=== PATIENT | female | born 1975 | race Caucasian/White ===

== ENCOUNTER 2020-04-19 00:41 | Outpatient (CLI) | payer OTHER, SELFPAY ==
[2020-04-19 18:11] LABS: SARS-CoV-2 RNA PCR Negative
== END 2020-04-19 00:42 | disposition home or self-care (01) ==
LOC: ANHCOVIDDT 00:41
PROVIDERS: PCP Internal Medicine; Visit Provider Surgery
DX: Z01.812 Encounter for preprocedural laboratory examination (principal); Z11.59 Encounter for screening for other viral diseases
CPT/HCPCS: 87635; C9803; U0003

== ENCOUNTER 2020-04-22 01:38 | Day surgery (SDC) | payer OTHER, SELFPAY ==
[2020-04-15 11:37] VITALS: BMI 35.6
[2020-04-22 09:30] VITALS: BP 148/88; PULSE 77; RESP 16; TEMP 36.4; O2SAT 97
[2020-04-22] MEDS: LACTATED RINGERS 1,000 ML 150 ML IV CONT (09:33)
--- NOTE | 2020-04-22 09:43 | PM.IMHP ---
H&P: HPI History of Present Illness Date/Time: 04/22/20 09:43 Chief complaint: Epigastric Abdominal Pain Narrative: Luiza Talbot is a 44 year old female who presents with frequent epigastric pains and heartburn. She is not on any medication for acid reflux. She was found to have gallstones, and she is referred for EGD to make sure there is nothing else that could be contributing to her symptoms. Review of Systems Review of Systems: All systems reviewed & are unremarkable except as noted in HPI and below Constitutional: Constitutional: Denies chills, Denies fever(s), Denies headache(s) and Denies weight loss Eyes: Eyes: Denies change in vision ENT: Denies dizziness, Denies headache(s), Denies neck mass and Denies throat swelling Cardiovascular: Cardiovascular: Denies chest pain, Denies lightheadedness and Denies dyspnea Respiratory: Respiratory: Denies cough, Denies dyspnea and Denies wheezing Gastrointestinal: Gastrointestinal: Denies abdominal pain, Denies change in bowel habits, Denies nausea and Denies vomiting Genitourinary: Genitourinary: Denies hematuria and Denies dysuria Musculoskeletal: Musculoskeletal: Reports as per HPI Integumentary/Breasts: Skin/Breast: Reports as per HPI Neurologic: Denies dizziness and Denies headache(s) Allergic/Immunologic: Allergic/Immunologic: Denies throat swelling and Denies wheezing [facility] Family History Family History Father Hypertension Diabetes mellitus Family history of cardiovascular disease Social History Social History Smoking status: Former smoker Smoking end date: 09/12/07 Alcohol intake: never Meds Home Medications and Allergies Home Medications Medication Instructions Recorded Confirmed Type acetaminophen [Tylenol] 325 mg PO ONCE PRN 04/15/20 04/15/20 History Allergies Allergy/AdvReac Type Severity Reaction Status Date / Time mirtazapine Allergy Mild Weakness Verified 04/15/20 11:15 topiramate Allergy Mild Weakness Verified 04/15/20 11:35 Vital Signs Vital Signs - 24 hr 04/22/20 09:30 Temperature 36.4 C Pulse Rate 77 Respiratory Rate 16 Blood Pressure 148/88 H Pulse Oximetry 97 Exam Const: General: no acute distress and alert Orientation/consciousness: patient oriented x3 HENMT: Head: normocephalic and atraumatic Ears: hearing grossly normal bilaterally General nose exam: Normal nares present Mouth: Yes Normal oral and palatal mucosa present Eyes: Periorbital: periorbital findings normal Sclera: sclerae normal EOM: EOMs intact bilaterally Neck: Neck: normal visual inspection, no lymphadenopathy and trachea midline Chest: Chest palpation & inspection: normal inspection of the chest Resp: Effort & Inspection: normal respiratory effort Auscultation: clear to auscultation bilaterally Cardio: Jugular venous distension: no JVD Rate: regular rate Rhythm: regular rhythm Heart sounds: S1 normal heart sound present and S2 normal heart sound present Peripheral pulses: Peripheral pulses 2+ throughout GI: Inspection: normal to inspection GI Palp: Yes Soft to palpation, No Tenderness to palpation present (GI), No Guarding due to palpation present (GI) and No Rebound tenderness present Percussion: Yes normal to percussion Auscultation: normal bowel sounds : General: Yes no CVA tenderness Back/Spine/Pelvis: Back: no CVA tenderness Neuro: General: patient oriented x3, no focal motor deficits and CN's II-XI intact bilaterally Cognition (Neuro): normal cognition Speech: normal speech Motor exam (neuro): 5/5 motor strength present throughout Extrem: General: capillary refill normal and no clubbing, cyanosis or edema Assessment and Plan Assessment and plan (1) GERD (gastroesophageal reflux disease): Code(s): K21.9 - Gastro-esophageal reflux disease without esophagitis Status: Acute
--- NOTE | 2020-04-22 09:52 | WPDANESEPPF ---
Anes - Initial Pre Proc Eval Procedure: Operation Date: 04/22/20 10:00 Proposed Procedures p Esophagogastroduodenoscopy - Ac Norman DO Date/Time: 04/22/20 09:52 Surgeon: Ac Norman DO Pre Op Diagnosis: Epigastric Abdominal Pain Patient Data Age: 44 Gender: F Height: 5 ft 11 in Weight: 119.5 kg Last Vital Signs Temp 97.6 F 04/22/20 09:30 Pulse 77 04/22/20 09:30 Resp 16 04/22/20 09:30 BP 148/88 H 04/22/20 09:30 Pulse Ox 97 04/22/20 09:30 Allergies Allergy/AdvReac Type Severity Reaction Status Date / Time mirtazapine Allergy Mild Weakness Verified 04/15/20 11:15 topiramate Allergy Mild Weakness Verified 04/15/20 11:35 Home Medications Medication Instructions Recorded Confirmed Type acetaminophen [Tylenol] 325 mg PO ONCE PRN 04/15/20 04/15/20 History Patient hx anesthesia problems: none Family hx anesthesia problems: none [facility] Past Medical History Medical History (Updated 04/22/20 @ 09:52 by Bart Alston MD) Arthritis Migraine Family History Family History Father Hypertension Diabetes mellitus Family history of cardiovascular disease Social History Social History Smoking status: Former smoker Smoking end date: 09/12/07 Alcohol intake: never Anes - Eval Final PreProcedure Day of Procedure 04/22/20 09:52 Patient weight: overweight Heart: regular rate and rhythm Lungs: clear to auscultation Airway: Mallampati scale class II Neurological: alert and oriented Last oral intake: >/= 8 hours ASA classification: II Emergent: no Anesthetic plan: proceed Anesthesia type and monitoring: general GIVS and standard monitoring Informed Consent: The patient's anesthetic plan and its attendant risks and benefits were discussed with the patient/family/POA. Questions were solicited and answers provided to the satisfaction of the patient/family/POA.
[2020-04-22 10:09] VITALS: BP 139/74; PULSE 75; RESP 22; O2SAT 95
[2020-04-22 10:19] VITALS: BP 136/78; PULSE 78; RESP 20; O2SAT 96
[2020-04-22 10:29] VITALS: BP 144/87; PULSE 73; RESP 22; O2SAT 99
== END 2020-04-22 10:54 | disposition home or self-care (01) ==
PROVIDERS: PCP Internal Medicine; Visit Provider Surgery
PROC: 0DJ08ZZ Inspection of Upper Intestinal Tract, Via Natural or Artificial Opening Endoscopic (ICD-10-PCS; CPT 43235; principal; 2020-04-22 10:00)
DX: K29.70 Gastritis, unspecified, without bleeding (principal); K21.9 Gastro-esophageal reflux disease without esophagitis; Z87.891 Personal history of nicotine dependence
CPT/HCPCS: 43239; 87081; J2704; J7120

== ENCOUNTER 2020-06-05 15:13 | Outpatient (CLI) | payer OTHER, SELFPAY ==
--- NOTE | 2020-06-05 15:38 | ECG_ITS ---
Measurements Intervals [place] Rate: 73 P: 31 IA: 137 QRS: -2 QRSD: 108 T: 9 QT: 397 QTc: 440 Interpretive Statements SINUS RHYTHM DELAYED PRECORDIAL R/S TRANSITION VOLTAGE CRITERIA FOR LVH MINIMAL Q WAVES- HIGH LATERAL LEADS BASELINE ARTIFACT- II, III, AVF BORDERLINE ECG Electronically Signed On 06-05-2020 18:47:23 CDT by Jermain Mena D.O.
[2020-06-05 15:47] LABS: Alanine Aminotransferase 13 U/L (4-35); Albumin Level 4.5 g/dL (3.5-5.1); Alkaline Phosphatase 91 U/L (38-126); Amylase 66 U/L (30-110); Aspartate Amino Transferase 17 U/L (14-36); Bilirubin,Total 0.9 mg/dL (0.2-1.3); Lipase 47 U/L (23-300)
== END 2020-06-05 15:14 | disposition home or self-care (01) ==
LOC: ANHLAB 15:16
PROVIDERS: PCP Internal Medicine; Visit Provider Surgery
DX: K80.20 Calculus of gallbladder without cholecystitis without obstruction (principal); Z87.891 Personal history of nicotine dependence
CPT/HCPCS: 36415; 80076; 82150; 83690; 86850; 86900; 86901; 93005

== ENCOUNTER 2020-06-06 00:05 | Outpatient (CLI) | payer OTHER, SELFPAY ==
[2020-06-06 18:02] LABS: SARS-CoV-2 RNA PCR Negative
== END 2020-06-06 00:06 | disposition home or self-care (01) ==
LOC: ANHCOVIDDT 00:05
PROVIDERS: PCP Internal Medicine; Visit Provider Surgery
DX: Z01.812 Encounter for preprocedural laboratory examination (principal); Z20.828 Contact with and (suspected) exposure to other viral communicable diseases
CPT/HCPCS: 87635; C9803; U0003

== ENCOUNTER 2020-06-09 01:39 | Day surgery (SDC) | payer OTHER, SELFPAY ==
[2020-06-03 12:07] VITALS: BMI 37.2
[2020-06-09] VITALS (9 sets, daily range): BP systolic 129–154; BP diastolic 69–81; PULSE 61–96; RESP 17–20; TEMP 36.4–36.6; O2SAT 93–99; BMI 35.0
--- NOTE | 2020-06-09 12:01 | P.PNAN_ITS ---
Anes - Initial Pre Proc Eval Procedure: Operation Date: 06/09/20 13:30 Proposed Procedures p Laparoscopic Cholecystectomy, Possible Open - Ac Norman DO Date/Time: 06/09/20 12:01 Surgeon: Ac Norman DO Pre Op Diagnosis: Symptomatic Cholelithiasis Patient Data Age: 44 Gender: F Height: 5 ft 11 in Weight: 114 kg Last Vital Signs Temp 36.4 C L 06/09/20 11:30 Pulse 80 06/09/20 11:30 Resp 18 06/09/20 11:30 BP 143/81 H 06/09/20 11:30 Pulse Ox 99 06/09/20 11:30 Allergies Allergy/AdvReac Type Severity Reaction Status Date / Time mirtazapine Allergy Mild Weakness Verified 06/03/20 12:07 topiramate Allergy Mild Weakness Verified 06/03/20 12:07 Home Medications Medication Instructions Recorded Confirmed Type acetaminophen [Tylenol] 325 - 650 mg PO DIRECTED PRN 04/15/20 06/03/20 History pantoprazole 40 mg tablet,delayed 40 mg PO BID 06/02/20 06/03/20 History release rizatriptan 10 mg tablet 10 mg PO ONCE PRN 06/02/20 06/03/20 History multivitamin 1 tablet PO DAILY 06/03/20 06/03/20 History Patient hx anesthesia problems: none Family hx anesthesia problems: none PMFSH Surgical History Surgical History History of partial hysterectomy 2016 History of tubal ligation Family History Family History Father Hypertension Diabetes mellitus Family history of cardiovascular disease Social History Social History Smoking packs per day: 1.5 Smoking cigarettes per day: 30.0 Years smoked: 15 Smoking pack-years: 22.50 Smoking status: Former smoker Tobacco type: cigarettes Smoking end date: 09/12/07 Additional smoking assessment comments: QUIT 2007 Alcohol intake: never Drinks per week: 2 Additional occupation/education comments: [employer], [employer] Spiritual care concerns: No Anes - Eval Final PreProcedure Day of Procedure 06/09/20 12:01 Patient weight: obese Heart: regular rate and rhythm Lungs: clear to auscultation Airway: Mallampati scale class II Neurological: alert and oriented Last oral intake: >/= 8 hours ASA classification: II Emergent: no Anesthetic plan: proceed Anesthesia type and monitoring: general ETT and standard monitoring Informed Consent: The patient's anesthetic plan and its attendant risks and benefits were discussed with the patient/family/POA. Questions were solicited and answers provided to the satisfaction of the patient/family/POA.
[2020-06-09] MEDS: LACTATED RINGERS 1,000 ML 30 ML IV CONT ×2 (12:07→13:45)
[2020-06-09] MEDS: ACETAMINOPHEN 500 MG TABLET 1000 MG PO (12:11)
[2020-06-09] MEDS: KETOROLAC 15 MG/ML VIAL (*BKC) IV PUSH (12:12)
--- NOTE | 2020-06-09 12:31 | WPDHPUPDATE1 ---
History and Physical Update Update Date/Time: 06/09/20 12:31 History and Physical has been reviewed, including an updated exam of the patient. There are NO changes in the patient's condition. Risks, benefits, and alternatives have been discussed and questions answered. Patient agrees to proceed with procedure.
[2020-06-09] MEDS: ceFAZolin 2 GM/D5W 50 ML 2 GM/50 ML BAG IVPB (12:52)
[2020-06-09] MEDS: BUPIVACAINE/EPINEPHRINE 0.5% 10 ML VIAL 30 ML INFILTRATE (13:15)
--- NOTE | 2020-06-09 13:46 | PM.PROC ---
Procedure Note - Detailed Date of procedure: 06/09/20 Pre-op diagnosis: Symptomatic Cholelithiasis Post-op diagnosis: same Procedure performed: Laparoscopic Cholecystectomy Description of procedure: Procedure as well as risks, benefits, and alternatives were discussed with patient. Written consent was obtained and placed in chart prior to procedure. The patient was brought back to surgical suite. Patient was placed in supine position on operating table. Time-out was done to confirm patient and procedure. Patient was then intubated by the anesthesia department. Abdomen was prepped and draped in sterile fashion using chlorhexidine prep. 0.5% bupivacaine with epinephrine was infiltrated at each site of incision. A 5 millimeter incision was made near the umbilicus, and a 5 millimeter Optiview trocar was advanced through the abdominal layers under direct visualization. Once inside the abdominal cavity, carbon dioxide was insufflated to create a pneumoperitoneum. The camera was inserted and the abdomen was inspected. No immediate abnormalities were identified. The patient was placed in reverse Trendelenburg position and rotated slightly to the left. An 11 millimeter incision was made in the subxiphoid region, and an 11 millimeter trocar was inserted under direct visualization. Two 5 millimeter incisions were made in the right upper quadrant, and two 5 millimeter trocars were inserted under direct visualization. The gallbladder was identified and grasped at the fundus and retracted superiorly. It was then grasped at the infundibulum retracted laterally. Careful dissection around the neck of the gallbladder was performed using blunt dissection with a [place] grasper and hook electrocautery. The cystic duct was identified, and a window was created behind it. The cystic artery was also identified and a window was created behind it. The critical view of safety was identified, visualizing the cystic duct running directly into the neck of the gallbladder, and the cystic artery running directly into the wall of the gallbladder. A 5 millimeter clip portable track line marker was then used to place 2 clips proximally and 1 clip distally on both the cystic duct and cystic artery. They were then both transected using endoscopic scissors. Once safely away from the margarita hepatitis, the gallbladder was dissected free from the liver bed using hook electrocautery. Hemostasis was achieved along the way. The gallbladder was removed completely and then removed through the subxiphoid port. The liver bed was then inspected. Hemostasis appeared adequate, and our clips appeared secure. The area was gently irrigated with sterile saline. No other abnormalities were seen. The patient was flattened out in bed, and 1 final inspection was made around the abdominal cavity. The subxiphoid port was removed, and a P[place] Santos cone was used to approximate the fascia with an 0-Vicryl simple interrupted suture. The remaining ports were then removed under direct visualization, the camera was removed, and the pneumoperitoneum was released. The skin of the incisions was approximated using 4-0 Monocryl subcuticular sutures. Exofin glue was applied on top. The patient was then awakened from anesthesia, extubated, and transferred to recovery. Anesthesia: GETA and local (0.5% bupivicaine with epi) Surgeon: Ac Norman DO Estimated blood loss (mL): 5 Drains: No Packing: No Pathology: yes Complications: No immediate complications Condition: stable (Patient tolerated procedure well, and is currently resting comfortably in recovery.) Disposition: same day Findings: Luiza is a 44 yo woman who presents with abdominal pain and gallstones. She states the pain is located across her upper abdomen. She states the pain is occasionally severe. She had an EGD performed on 04/22/20 which showed mild localized gastritis. CT abd/pelvis with contrast was done in [place] on 05/07/20 and showed cholelithiasis. Discuss
[2020-06-09] MEDS: fentaNYL CITRATE INJ (*CRX) 100 MCG/2 ML VIAL 25 MCG IV PUSH ×6 (14:12→14:30)
== END 2020-06-09 15:57 | disposition home or self-care (01) ==
PROVIDERS: PCP Internal Medicine; Visit Provider Surgery
PROC: 0FT44ZZ Resection of Gallbladder, Percutaneous Endoscopic Approach (ICD-10-PCS; CPT 47562; principal; 2020-06-09 13:30)
DX: K80.10 Calculus of gallbladder with chronic cholecystitis without obstruction (principal); Z87.891 Personal history of nicotine dependence; E66.9 Obesity, unspecified; Z68.35 Body mass index [BMI] 35.0-35.9, adult
CPT/HCPCS: 47562; 88304; A9270; J0690; J1100; J1885; J2250; J2405; J2704; J2710; J3010; J7030; J7120

== ENCOUNTER 2020-11-04 09:08 | Outpatient (CLI) | payer OTHER, SELFPAY ==
--- NOTE | ~2020-11-04 | XR_ITS ---
XR lumbar spine 2-3V DATE: 11/04/2020 10:00 INDICATION: Chronic back pain, hip pain TECHNIQUE: AP, lateral, coned lateral lumbosacral views COMPARISON: 05/08/2008 lumbar spine FINDINGS: There is mild dextroscoliosis of the lower thoracic and lumbar spine. There is normal align ment of the lumbar spine. The included lower thoracic and lumbar pedicles are intact. No fracture or bone destruction or spondylolisthesis. There is moderately severe degenerative disc disease at L1-2, moderate degenerative disc disease at L 2-3, moderately severe degenerative disc disease at L4-5 and severe degenerative disease at L5-S1. The sacroiliac joints are intact. Status post cholecystectomy IMPRESSION: Multilevel degenerative disc disease, most pronounced at L1-2, L4-5 and particularly L5-S 1 Reviewed, dictated and finalized at location A. RTING PRESS OPERATOR IMPRESSION: Multilevel degenerative disc disease, most pronounced at L1-2, L4-5 and particularly L5-S1
--- NOTE | ~2020-11-04 | XR_ITS ---
XR knee RT 3V DATE: 11/04/2020 10:00 INDICATION: Right knee pain TECHNIQUE: [place], AP and lateral views COMPARISON: 06/25/2011 right knee FINDINGS: No fracture or dislocation or joint effusion. No periosteal reaction or bone destruction. N o radiopaque intra-articular loose body or chondrocalcinosis. Joint spaces are relatively preserved. Minimal periarticular spurring at all 3 compartments. IMPRESSION: Mild osteoarthritis Reviewed, dictated and finalized at location A. LANCE DIRECTOR IMPRESSION: Mild osteoarthritis
--- NOTE | ~2020-11-04 | XR_ITS ---
XR knee LT 3V DATE: 11/04/2020 10:00 INDICATION: Left knee pain TECHNIQUE: [place], AP and lateral views COMPARISON: None FINDINGS: No fracture or dislocation or joint effusion. No periosteal reaction or bone destruction. N o radiopaque intra-articular loose body or chondrocalcinosis. Minimal periarticular spurring at the knee joint. IMPRESSION: Mild osteoarthritis Reviewed, dictated and finalized at location A. TYPE CUTTER IMPRESSION: Mild osteoarthritis
--- NOTE | ~2020-11-04 | XR_ITS ---
XR hip RT min 2V DATE: 11/04/2020 10:00 INDICATION: Right hip pain for 2 months TECHNIQUE: AP and lateral views COMPARISON: None FINDINGS: There is mild degenerative spurring of the right femoral head. Right hip joint space is rel atively preserved. No fracture, dislocation, avascular necrosis or bone destruction of the right hip. Normal alignment a t the pubic symphysis and right sacroiliac joint. IMPRESSION: Mild right hip osteoarthritis Reviewed, dictated and finalized at location A. HROOM OPERATOR
--- NOTE | ~2020-11-04 | XR_ITS ---
XR hip LT min 2V DATE: 11/04/2020 10:00 INDICATION: Left hip pain for 2 months TECHNIQUE: AP and lateral views COMPARISON: None FINDINGS: No fracture or dislocation, avascular necrosis or bone destruction. The left hip joint spac e is relatively well preserved. There is minimal degenerative spurring of the left femoral head. Join t space appears relatively preserved. The pubic symphysis and sacroiliac joints appear intact. IMPRESSION: Mild left hip osteoarthritis Reviewed, dictated and finalized at location A. PATOLOGIST
== END 2020-11-04 09:09 | disposition home or self-care (01) ==
LOC: CHSIMG 09:11
PROVIDERS: PCP Internal Medicine; Visit Provider Internal Medicine
DX: Z00.00 Encounter for general adult medical examination without abnormal findings (principal); M25.50 Pain in unspecified joint
CPT/HCPCS: 72100; 73502; 73562

== ENCOUNTER 2020-11-08 08:06 | Outpatient (CLI) | payer OTHER, SELFPAY ==
[2020-11-08 08:19] LABS: Basophils Absolute Auto 0.05 K/mm3 (0.00-0.10); Basophils Percent Auto 0.8 % (0.0-1.0); Eosinophils Absolute Auto 0.08 K/mm3 (0.02-0.50); Eosinophils Percent Auto 1.3 % (1.0-6.0); Hematocrit 39.2 % (35.0-49.0); Hemoglobin 12.7 g/dL (12.0-15.0); Immature Granulocyte Absolute 0.02 K/mm3 (0.00-0.00); Immature Granulocyte Percent A 0.3 % (0.0-0.0); Lymphocytes Absolute Auto 1.81 K/mm3 (1.10-4.50); Lymphocytes Percent Auto 30.4 % (18.0-42.0); Mean Corpuscular HGB Conc 32.4 g/dL (32.0-36.0); Mean Corpuscular Hemoglobin 30.1 pg (27.0-31.0); Mean Corpuscular Volume 92.9 fL (78.0-102.0); Mean Platelet Volume 10.8 fl (9.2-11.8); Monocytes Absolute Auto 0.36 K/mm3 (0.10-0.90); Monocytes Percent Auto 6.1 % (2.0-11.0); Neutrophils Absolute Auto 3.6 K/mm3 (1.7-7.2); Neutrophils Percent Auto 61.1 % (50.0-70.0); Platelet Count Result 186 K/mm3 (150-420); Red Blood Count 4.22 M/mm3 (4.20-5.40); Red Cell Distribution Width 12.2 % (11.6-14.4)
[2020-11-08 08:25] LABS: Add Urine Microscopic? NO; Appearance Urine Clear (Clear); Bilirubin Urine Negative (Negative); Blood Urine Negative (Negative); Color Urine Yellow (Yellow); Glucose Urine UA Negative (Negative); Ketones Urine Negative (Negative); Leukocyte Esterase Ur Negative (Negative); Nitrate Urine Negative (Negative); Protein Urine Negative (Negative); Specific Grav Ur 1.025 (1.010-1.020); Urobilinogen Urine 0.2 mg/dL (0.2-1.0); pH Urine 6.5 (5.0-8.0)
[2020-11-08 09:38] LABS: Alanine Aminotransferase 21 U/L (14-59); Albumin Level 3.5 g/dL (3.4-5.0); Alkaline Phosphatase 78 U/L (46-116); Anion Gap 6 mmol/L (8-16); Aspartate Amino Transferase 11 U/L (15-37); Bilirubin,Total 0.5 mg/dL (0.00-1.00); Blood Urea Nitrogen 11 mg/dL (7-18); CRP < 0.5 mg/dL (0.0-0.9); Calcium 8.4 mg/dL (8.5-10.1); Carbon Dioxide 27 mmol/L (21-32); Chloride 107 mmol/L (98-108); Cholesterol 145 mg/dL (0-200); Estimated Glomerular Filt Rate > 60; Glucose 95 mg/dL (70-99); HDL Direct 62 mg/dL (40-60); LDL Cholesterol Calculated 70 mg/dL (<130); Osmolality Calculated 289 mOsm/kg (285-295); Potassium 4.3 mmol/L (3.5-5.1); Sodium 140 mmol/L (136-145); Thyroid Stimulating Hormone 0.98 uIU/mL (0.36-3.74); Total Protein 6.7 g/dL (6.4-8.2); Triglycerides 66 mg/dL (0-150)
== END 2020-11-08 08:07 | disposition home or self-care (01) ==
LOC: CHSLAB 08:09
PROVIDERS: PCP Internal Medicine; Visit Provider Internal Medicine
DX: Z00.00 Encounter for general adult medical examination without abnormal findings (principal); M25.50 Pain in unspecified joint
CPT/HCPCS: 36415; 80053; 80061; 81003; 84443; 85025; 86140

== ENCOUNTER 2021-05-04 15:14 | Outpatient (CLI) | payer OTHER, SELFPAY ==
--- NOTE | ~2021-05-04 | XR_ITS ---
XR foot RT min 3V DATE: 05/04/2021 15:35 INDICATION: Lateral right foot pain for one month. No injury. TECHNIQUE: 4 views COMPARISON: None FINDINGS: Slight plantar calcaneal enthesopathy. No fracture or dislocation, periosteal reaction or b one destruction. IMPRESSION: Slight plantar calcaneal enthesopathy Reviewed, dictated and finalized at location A.
== END 2021-05-04 15:15 | disposition home or self-care (01) ==
LOC: CHSIMG 15:17
PROVIDERS: PCP Internal Medicine; Visit Provider Internal Medicine
DX: M79.671 Pain in right foot (principal)
CPT/HCPCS: 73630

== ENCOUNTER 2022-03-25 09:00 | Outpatient (CLI) | payer OTHER, SELFPAY ==
[2022-03-25 09:16] LABS: Add Urine Microscopic? NO; Appearance Urine Clear (Clear); Basophils Absolute Auto 0.06 K/mm3 (0.00-0.10); Basophils Percent Auto 0.8 % (0.0-1.0); Bilirubin Urine Negative (Negative); Blood Urine Negative (Negative); Color Urine Yellow (Yellow); Eosinophils Absolute Auto 0.07 K/mm3 (0.02-0.50); Eosinophils Percent Auto 0.9 % (1.0-6.0); Glucose Urine UA Negative (Negative); Hematocrit 40.4 % (35.0-49.0); Immature Granulocyte Absolute 0.02 K/mm3 (0.00-0.00); Immature Granulocyte Percent A 0.3 % (0.0-0.0); Ketones Urine Negative (Negative); Leukocyte Esterase Ur Negative (Negative); Lymphocytes Absolute Auto 2.28 K/mm3 (1.10-4.50); Lymphocytes Percent Auto 30.1 % (18.0-42.0); Mean Corpuscular HGB Conc 32.2 g/dL (32.0-36.0); Mean Corpuscular Hemoglobin 29.7 pg (27.0-31.0); Mean Corpuscular Volume 92.4 fL (78.0-102.0); Mean Platelet Volume 10.9 fl (9.2-11.8); Monocytes Absolute Auto 0.64 K/mm3 (0.10-0.90); Monocytes Percent Auto 8.4 % (2.0-11.0); Neutrophils Absolute Auto 4.5 K/mm3 (1.7-7.2); Neutrophils Percent Auto 59.5 % (50.0-70.0); Nitrate Urine Negative (Negative); Platelet Count Result 222 K/mm3 (150-420); Protein Urine Negative (Negative); Red Blood Count 4.37 M/mm3 (4.20-5.40); Red Cell Distribution Width 12.4 % (11.6-14.4); Urobilinogen Urine 0.2 mg/dL (0.2-1.0); White Blood Count 7.6 K/mm3 (4.8-10.8); pH Urine 5.5 (5.0-8.0)
[2022-03-25 10:16] LABS: Alanine Aminotransferase 22 U/L (14-59); Albumin Level 3.8 g/dL (3.4-5.0); Alkaline Phosphatase 102 U/L (46-116); Anion Gap 8 mmol/L (8-16); Aspartate Amino Transferase 13 U/L (15-37); Bilirubin,Total 0.5 mg/dL (0.00-1.00); Blood Urea Nitrogen 17 mg/dL (7-18); CRP 0.5 mg/dL (0.0-0.9); Calcium 8.8 mg/dL (8.5-10.1); Carbon Dioxide 28 mmol/L (21-32); Chloride 106 mmol/L (98-108); Cholesterol 177 mg/dL (0-200); Estimated Glomerular Filt Rate > 60; Glucose 100 mg/dL (70-99); HDL Direct 71 mg/dL (40-60); LDL Cholesterol Calculated 94 mg/dL (<130); Osmolality Calculated 295 mOsm/kg (285-295); Potassium 4.5 mmol/L (3.5-5.1); Sodium 142 mmol/L (136-145); Thyroid Stimulating Hormone 1.06 uIU/mL (0.36-3.74); Total Protein 7.2 g/dL (6.4-8.2); Triglycerides 58 mg/dL (0-150); Uric Acid 4.6 mg/dL (2.6-6.0)
[2022-03-25 14:15] LABS: Hemoglobin A1C 5.2 % (<5.7)
[2022-03-28 15:15] LABS: FSH 21.9 mIU/mL (***)
[2022-03-30 15:56] LABS: Estrogen 364.3 pg/mL
== END 2022-03-25 09:01 | disposition home or self-care (01) ==
LOC: CHSLAB 09:02
PROVIDERS: PCP Internal Medicine; Visit Provider Internal Medicine
DX: Z00.00 Encounter for general adult medical examination without abnormal findings (principal); R53.83 Other fatigue; M25.50 Pain in unspecified joint; R23.2 Flushing; R73.9 Hyperglycemia, unspecified
CPT/HCPCS: 36415; 80053; 80061; 81003; 82672; 83001; 83002; 83036; 84443; 84550; 85025; 86140

== ENCOUNTER 2022-03-29 07:27 | Outpatient (CLI) | payer OTHER, SELFPAY ==
--- NOTE | ~2022-03-29 | MM_ITS ---
EXAMINATION: MM screening [facility] BI w [facility] HISTORY: Screening TECHNIQUE: Craniocaudal and mediolateral oblique 3-D tomosynthesis images were obtained and synthetic 2-D images were generated. CAD analysis was submitted and interpreted. COMPARISON: Comparison to multiple prior studies sequentially, with oldest reviewed study dated 05/31. BREAST PARENCHYMAL COMPOSITION: There are scattered areas of fibroglandular density. FINDINGS: There is no evidence of suspicious mass, calcification, or architectural distortion to sugg est malignancy in either breast. There has been no suspicious interval change. IMPRESSION: 1. No mammographic evidence of malignancy. 2. Recommend routine screening mammography in one year. BI-RADS Category 1: Negative Reviewed, dictated and finalized at location A.
== END 2022-03-29 07:28 | disposition home or self-care (01) ==
LOC: CHSIMG 07:27
PROVIDERS: PCP Internal Medicine; Visit Provider Internal Medicine
DX: Z12.31 Encounter for screening mammogram for malignant neoplasm of breast (principal)
CPT/HCPCS: 77063; 77067

== ENCOUNTER 2023-07-30 08:40 | Outpatient (CLI) | payer OTHER, SELFPAY ==
[2023-07-30 08:55] LABS: Basophils Absolute Auto 0.05 K/mm3 (0.00-0.10); Basophils Percent Auto 0.8 % (0.0-1.0); Eosinophils Absolute Auto 0.14 K/mm3 (0.02-0.50); Eosinophils Percent Auto 2.3 % (1.0-6.0); Hematocrit 40.2 % (35.0-49.0); Hemoglobin 13.1 g/dL (12.0-15.0); Immature Granulocyte Absolute 0.01 K/mm3 (0.00-0.00); Immature Granulocyte Percent A 0.2 % (0.0-0.0); Lymphocytes Absolute Auto 1.69 K/mm3 (1.10-4.50); Lymphocytes Percent Auto 27.5 % (18.0-42.0); Mean Corpuscular HGB Conc 32.6 g/dL (32.0-36.0); Monocytes Absolute Auto 0.46 K/mm3 (0.10-0.90); Monocytes Percent Auto 7.5 % (2.0-11.0); Neutrophils Absolute Auto 3.8 K/mm3 (1.7-7.2); Neutrophils Percent Auto 61.7 % (50.0-70.0); Platelet Count Result 192 K/mm3 (150-420); Red Blood Count 4.37 M/mm3 (4.20-5.40); Red Cell Distribution Width 12.3 % (11.6-14.4); White Blood Count 6.1 K/mm3 (4.8-10.8)
[2023-07-30 09:08] LABS: Appearance Urine Clear (Clear); Bilirubin Urine Negative (Negative); Blood Urine Negative (Negative); Color Urine Yellow (Yellow); Glucose Urine UA Negative (Negative); Ketones Urine Negative (Negative); Leukocyte Esterase Ur Negative (Negative); Nitrate Urine Negative (Negative); Protein Urine Negative (Negative); Urobilinogen Urine 0.2 mg/dL (0.2-1.0)
[2023-07-30 09:09] LABS: Add Urine Microscopic? NO
[2023-07-30 09:51] LABS: Alanine Aminotransferase 21 U/L (14-59); Albumin Level 3.4 g/dL (3.4-5.0); Alkaline Phosphatase 68 U/L (46-116); Anion Gap 9 mmol/L (8-16); Aspartate Amino Transferase < 10 U/L (15-37); Bilirubin,Total 0.7 mg/dL (0.00-1.00); Blood Urea Nitrogen 13 mg/dL (7-18); Calcium 8.4 mg/dL (8.5-10.1); Carbon Dioxide 27 mmol/L (21-32); Chloride 106 mmol/L (98-108); Cholesterol 148 mg/dL (0-200); Estimated Glomerular Filt Rate > 60; Glucose 99 mg/dL (70-99); HDL Direct 69 mg/dL (40-60); LDL Cholesterol Calculated 70 mg/dL (<130); Osmolality Calculated 294 mOsm/kg (285-295); Potassium 4.1 mmol/L (3.5-5.1); Sodium 142 mmol/L (136-145); Thyroid Stimulating Hormone 1.16 uIU/mL (0.36-3.74); Total Protein 6.5 g/dL (6.4-8.2); Triglycerides 43 mg/dL (0-150)
== END 2023-07-30 08:41 | disposition home or self-care (01) ==
LOC: CHSLAB 08:43
PROVIDERS: PCP Internal Medicine; Visit Provider Internal Medicine
DX: Z00.00 Encounter for general adult medical examination without abnormal findings (principal)
CPT/HCPCS: 36415; 80053; 80061; 81003; 84443; 85025

== ENCOUNTER 2023-08-16 14:03 | Outpatient (CLI) | payer OTHER, SELFPAY ==
--- NOTE | ~2023-08-16 | MM_ITS ---
EXAMINATION: MM screening [facility] BI w [facility] HISTORY: Screening mammogram TECHNIQUE: Craniocaudal and mediolateral oblique 3-D tomosynthesis images were obtained and synthetic 2-D images were generated. CAD analysis was submitted and interpreted. COMPARISON: 03/29/2022, 11/02/2017, 08/25/2016 BREAST PARENCHYMAL COMPOSITION: There are scattered areas of fibroglandular density. FINDINGS: No suspicious mass, calcification, or architectural distortion are identified in either teagan ast to suggest malignancy. There has been no suspicious interval change. IMPRESSION: 1. No mammographic evidence of malignancy. 2. Recommend routine screening mammography in one year. BI-RADS Category 1: Negative Reviewed, dictated and finalized at location A. BURNER
== END 2023-08-16 14:04 | disposition home or self-care (01) ==
PROVIDERS: PCP Internal Medicine; Visit Provider Internal Medicine
DX: Z12.31 Encounter for screening mammogram for malignant neoplasm of breast (principal)
CPT/HCPCS: 77063; 77067

== ENCOUNTER 2025-08-20 08:17 | Outpatient (CLI) | payer BC, SELFPAY ==
--- NOTE | 2025-08-20 08:26 | ECHO_ITS ---
Patient Info Name: Luiza Talbot Age: 50 years : 1975 Gender: Female Ht: 71 in Wt: 223 lbs BSA: 2.28 m2 HR: 67 bpm BP: 174 / 91 mmHg Technical Quality: Good Exam Date: 08/20/2025 8:28 AM Patient Status: O Admit Date: 08/20/2025 Exam Type: CA echo doppler color flow Complete two-dimensional, color flow and Doppler transthoracic echocardiogram is performed. Paper Rewinder Operator: Checo Corbin III Attending Provider: Malik Kaur MD Summary 1. Complete two-dimensional, color flow and Doppler transthoracic echocardiogram is performed. 2. Left ventricular chamber dimension is moderately enlarged. 3. Left ventricular systolic function is moderately globally reduced, estimated at 40-45. 4. The left ventricular diastolic function is normal. 5. E/e' 8 is minimally elevated. 6. Left atrial chamber dimension is mildly enlarged. 7. There is mild aortic valve sclerosis. 8. There is moderate to severe aortic valve regurgitation. 9. There is trace mitral valve regurgitation. 10. There is trace tricuspid valve regurgitation. 11. There is trace pulmonic regurgitation. Left Ventricle E/e' 8 is minimally elevated. Left ventricular chamber dimension is moderately enlarged. Left ventricular systolic function is moderately globally reduced, estimated at 40-45. The left ventricular diastolic function is normal. Right Ventricle Right ventricular chamber dimension is normal. Right ventricular systolic function is normal and with normal TAPSE 2.1 cm. Left Atria Left atrial chamber dimension is mildly enlarged. Right Atria Right atrial chamber dimension is normal. Aortic Valve The aortic valve is trileaflet. There is mild aortic valve sclerosis. There is no aortic valve stenosis. There is moderate to severe aortic valve regurgitation. Pulmonic Valve There is trace pulmonic regurgitation. Mitral Valve There is no mitral valve stenosis. There is trace mitral valve regurgitation. Tricuspid Valve There is trace tricuspid valve regurgitation. RVSP is not measured due to an inadequate TR jet. Pericardium/Pleural There is no pericardial effusion. Inferior Vena Cava Normal inferior vena cava with >50% collapse upon inspiration consistent with normal right atrial pressure, 5 mmHg. Aorta The aortic root size at the sinus of Valsalva is normal. Left Ventricular Outflow Tract Name Value Normal LVOT 2D LVOT Diameter 2.6 cm LVOT Doppler LVOT Peak Velocity 86 cm/s LVOT Peak Gradient 3 mmHg LVOT Mean Gradient 2 mmHg LVOT VTI 22 cm LVOT VTI/AV VTI Ratio 0.4 LVOT Stroke Volume 120 ml LVOT CO 7.6 l/min LVOT CI 3.4 l/min/m2 Pulmonic Valve Name Value Normal PV Doppler PV Peak Velocity 90 cm/s PV Peak Gradient 3 mmHg PV Mean Gradient 2 mmHg PV Regurgitation Doppler NM Peak End Diastolic Velocity 99 cm/s Mitral Valve Name Value Normal MV Doppler MV Peak Gradient 3 mmHg MV Mean Gradient 2 mmHg MV Area (Cont Eq VTI) 5.8 cm2 MV Diastolic Function MV E Peak Velocity 58 cm/s MV A Peak Velocity 59 cm/s MV E/A 1.0 MV Decel Time (PW) 195 ms MV Annular TDI MV E/e' (Septal) 8.6 MV E/e' (Lateral) 7.2 MV E/e' (Average) 7.9 Tricuspid Valve Name Value Normal Estimated PAP/RSVP RA Pressure 5 mmHg <=5 TV Annular TDI TV Lateral Niharika s' Velocity 14.9 cm/s >=9.5 Aortic Valve Name Value Normal AV Doppler AV Peak Velocity 223 cm/s AV Peak Gradient 18 mmHg AV Mean Gradient 10 mmHg AV VTI 53 cm AV Area (Cont Eq VTI) 2.3 cm2 >=3.0 AV Area (Cont Eq Boni) 2.1 cm2 AV DI (Boni) 0.39 AV Regurgitation 2D LVOT Area 5.5 cm2 Ventricles Name Value Normal LV Dimensions 2D/MM IVS Diastolic Thickness (2D) 1.2 cm 0.6-1.0 LVID Diastole (2D) 6.0 cm 3.8-5.2 LVIW Diastolic Thickness (2D) 1.1 cm 0.6-0.9 LVID Systole (2D) 4.7 cm 2.2-3.5 LVOT Diameter 2.6 cm LV Mass (2D Cubed) 304.03 g 67.00-162.00 LV Mass Index (2D Cubed) 133 g/m2 43-95 Relative Wall Thickness (2D) 0.36 <=0.42 LV Fractional Shortening/Ejection Fraction 2D/MM LV Fractional Shortening (2D) 20 % 27-45 LV EF (2D Teichholz) 43 % LV Diastolic Volume (4C MOD) 177 ml LV EF (4C MOD) 48 % LV Diastolic Volume (2C MOD) 173 ml LV EF (2C MOD) 53 % LV Diastolic Volume (BP MOD) 182 ml 46-106 LV Diastolic Volume Index (BP MOD) 80 ml/m2 29-61 LV Systolic Volume (BP MOD) 87 ml 14-42 LV Systolic Volume Index (BP MOD) 38 ml/m2 8-24 LV EF (BP MOD) 52 % 54-74 LV Diastolic Length (4C) 8.3 cm LV Systolic Length (4C) 7.2 cm LV Stroke Volume (4C MOD) 85 ml Atria Name Value Normal LA Dimensions LA Volume (4C A-L) 52 ml LA Volume (BP A-L) 71 ml RA Dimensions RA Systolic [place] Length (4C) 4.4 cm 2.2-2.8 RA Area (4C) 14.5 cm2 <=18.0 Report Signatures
== END 2025-08-20 08:18 | disposition home or self-care (01) ==
LOC: CHSIMG 08:22
PROVIDERS: PCP Internal Medicine; Visit Provider Internal Medicine
DX: R01.1 Cardiac murmur, unspecified (principal); R42 Dizziness and giddiness; I35.1 Nonrheumatic aortic (valve) insufficiency
CPT/HCPCS: 93306